=== PATIENT | male | born 1985 | race Caucasian/White ===

== ENCOUNTER 2019-05-15 12:45 | Emergency (ER) | payer MEDICAID ==
[~2019-05-15] VITALS: Ht 190.5 cm; Wt 104.5 kg
[2019-05-15 13:02] VITALS: Ht 190.5 cm; Wt 104.5 kg
[2019-05-15] MEDS ORDERED: IBUPROFEN800 MG PO (13:04)
[2019-05-15 13:32] LABS: BASOPHILS 0.4 % (0-2); EOSINOPHILS 6.5 % (0-7); HEMATOCRIT 40.4 % (42.0-54.0); IMMATURE GRANULOCYTES 0.1 % (0-5); LYMPHOCYTES 25.3 % (15-50); MCHC 37.1 g/dL (31.0-37.0); MCV 80.8 fL (80.0-100.0); MEAN PLATELET VOLUME 8.9 fL (7.4-10.4); MONOCYTES 5.9 % (2-11); NEUTROPHILS 61.8 % (40-80); PLATELET COUNT 286 10x3/uL (130-400); WBC 7.8 10x3/uL (4.8-10.8)
[2019-05-15 14:08] LABS: ALBUMIN 3.7 g/dL (3.4-5.0); ALKALINE PHOSPHATASE 113 U/L (46-116); ALT (SGPT) 31 U/L (10-68); BILIRUBIN - TOTAL 0.41 mg/dL (0.2-1.3); CALC OSMOLALITY 279 mosm/kg (275-300); CALCIUM 8.7 mg/dL (8.5-10.1); CARBON DIOXIDE 30.2 mmol/L (21.0-32.0); CHLORIDE - SERUM 100 mmol/L (98-107); CKMB 0.7 U/L (0.0-3.6); CREATINE KINASE 77 UL (21-232); CREATININE - SERUM 1.2 mg/dL (0.6-1.3); GLUCOSE 119 mg/dL (74-106); PRO BNP 14 pg/mL (0-125); PROTEIN - SERUM 7.7 g/dL (6.4-8.2); SODIUM 139 mmol/L (136-145); UREA NITROGEN 16 mg/dL (7-18); eGFR NON AFRICAN AMERICAN 73 mL/min (90-120)
[2019-05-15 14:09] LABS: TROPONIN-I < 0.017 ng/mL (0.000-0.060)
[2019-05-15 14:12] LABS: APTT 28.7 SECONDS (22.8-39.4); POTASSIUM - SERUM 2.9 mmol/L (3.5-5.1)
[2019-05-15 14:31] LABS: INR 1.05 (0.85-1.17); PROTIME 13.2 SECONDS (11.6-15.0)
[2019-05-15] MEDS ORDERED: MAXZIDE 75/501 TAB PO (15:48)
[2019-05-15 17:08] LABS: PRO BNP 14 pg/mL (0-125)
[2019-05-15 17:11] LABS: TROPONIN-I < 0.017 ng/mL (0.000-0.060)
[2019-05-15 18:19] VITALS: BP 133/93
== END 2019-05-15 18:32 | disposition home or self-care (01) ==
LOC: D.ER 12:45 → EDBD 12:45 → D.ER 18:32
PROVIDERS: Family Medicine
DX: I10 Essential (primary) hypertension (principal); E87.6 Hypokalemia